=== PATIENT | male | born 1970 | race African-American/Black ===

== ENCOUNTER 2018-03-03 11:54 | Emergency (ER) | payer OTHER ==
[~2018-03-03] VITALS: Ht 180.3 cm; Wt 133.2 kg
[~2018-03-03 11:54] MED LIST: ALPR2TAB2 PO; HYDR-3307 PO
[2018-03-03 12:55] LABS: ANION GAP 2 mmol/L (5-15); CALCIUM 8.4 mg/dL (8.5-10.1); CHLORIDE 110 mmol/L (98-107); CREATININE 1.13 mg/dL (0.7-1.3)
[2018-03-03 13:05] LABS: MEAN CORPUSCULAR HEMOGLOBIN 27.6 pg (27.5-34.5); MEAN CORPUSCULAR VOLUME 86.2 fL (81-97); MEAN PLATELET VOLUME 9.1 fL (7.4-10.4); PLATELET COUNT 247 x10^3/uL (130-400); RED BLOOD COUNT 4.76 x10^6/uL (4.38-5.82); RED CELL DISTRIBUTION WIDTH 17.5 % (9.4-14.8)
[2018-03-03 13:08] LABS: MD YES
[2018-03-03 13:10] LABS: SEG#(MANUAL) 5.43 x10^3/uL (1.8-6.8); SEGS% (MANUAL) 6 % (42-75)
[2018-03-03 13:12] LABS: LYMPH#(MANUAL) 83.26 x10^3/uL (1-3.4); LYMPHS% (MANUAL) 92 % (22-44); MONOS#(MANUAL) 1.81 x10^3/uL (0.3-2.7); MONOS% (MANUAL) 2 % (2-9)
[2018-03-03 13:13] LABS: ANISOCYTOSIS 1+; SMUDGE CELLS 2+
[2018-03-03 13:14] LABS: <PLATELET ESTIMATE> ADEQUATE; <PLT MORPHOLOGY> NORMAL PLT MORPH
[2018-03-03] MEDS ORDERED: OMNIPAQUE 350 MG/ML, 150 ML BOTTLE ONE (13:53)
[2018-03-03 16:14] VITALS: BP 150/109
== END 2018-03-03 16:47 | disposition home or self-care (01) ==
LOC: ED 16:41
DX: R59.1 Generalized enlarged lymph nodes (principal); I10 Essential (primary) hypertension; E66.01 Morbid (severe) obesity due to excess calories; Z68.41 Body mass index [BMI] 40.0-44.9, adult; Z90.89 Acquired absence of other organs; Z88.0 Allergy status to penicillin
CPT/HCPCS: 36415; 70491; 71046; 71260; 74177; 80048; 82040; 83615; 84550; 85025; 87806; 99284; Q9967; G0475